=== PATIENT | female | born 1995 | race Caucasian/White ===

== ENCOUNTER 2016-09-19 14:12 | Emergency (ER) | payer SELFPAY ==
[~2016-09-19] VITALS: Ht 165.1 cm; Wt 50.0 kg
[~2016-09-19 14:12] MED LIST: MACR100C PO
[2016-09-19 14:14] VITALS: BP 115/68; PULSE 82; RESP 17; TEMP 98.6; O2SAT 98
[2016-09-19] MEDS ORDERED: PENI500T PO (15:19)
--- NOTE | 2016-09-19 15:20 | PD ---
HPI Chief Complaint: ENT Complaint Time Seen by Provider: 14:20 Travel History International Travel<30 days: No Contact w/Intl Traveler<30days: No Traveled to known affect area: No History of Present Illness HPI 21-year-old female presents emergency department for evaluation of sore throat times one day. Patient reports subjective fever and chills. Patient has history tripped pharyngitis. She reports the symptoms are similar. She denies cough, nasal congestion, chest pain, shortness, nausea or vomiting. PFSH Past Medical History ADD: Yes ADHD: Yes Autoimmune Disease: No Blood Disorders: No Bipolar Disorder: Yes Anxiety: Yes Depression: Yes Cancer: No Cardiovascular Problems: No Developmental Delay: No Diabetes: No Diminished Hearing: No Genitourinary: No Musculoskeletal: No Neurologic: No Psychiatric: Yes (PTSD) Respiratory: No Immunizations Current: Yes Migraines: No Seizures: No Sickle Cell Disease: No Thyroid Disease: No Ulcer: No ?: Not LMP: SEPTEMBER 2016 : 0 Past Surgical History Abdominal Surgery: Yes (INTESUSCEPTION AT 1YO) Appendectomy: No Cholecystectomy: No Other Surgery: Yes (INFANT ABD) Social History Alcohol Use: No Tobacco Use: No Substance Use: Yes (MARIJUANA USE) Allergies-Medications (Allergen,Severity, Reaction): Coded Allergies: Risperdal (Unverified Allergy, Unknown, 09/19/16) PT STATES IDIOSYNCRATIC RESPONSE TO MEDICATION. Seroquel (Unverified Allergy, Unknown, 09/19/16) PT DENIES. ALLERGY FOUND IN CHART ON A DOCUMENT. Reported Meds & Prescriptions Reported Meds & Active Scripts Active Penicillin V Potassium 500 Mg Tab 500 Mg PO Q12HR Review of Systems Except as stated in HPI: all other systems reviewed are Neg Physical Exam Narrative GENERAL: Well-nourished, well-developed patient. SKIN: Focused skin assessment warm/dry. HEAD: Normocephalic. EYES: No scleral icterus. No injection or drainage. THROAT: Tonsils mildly inflamed with exudate. Uvula midline. NECK: Supple, trachea midline. No JVD or lymphadenopathy. CARDIOVASCULAR: Regular rate and rhythm without murmurs, gallops, or rubs. RESPIRATORY: Breath sounds equal bilaterally. No accessory muscle use. GASTROINTESTINAL: Abdomen soft, non-tender, nondistended. MUSCULOSKELETAL: No cyanosis, or edema. BACK: Nontender without obvious deformity. No CVA tenderness. Data Data Last Documented VS Vital Signs Date Time Temp Pulse Resp B/P Pulse Ox O2 Delivery O2 Flow Rate FiO2 09/19/16 14:14 98.6 82 17 115/68 98 Room Air Orders Group A Rapid Strep Screen (09/19/16 14:28) MDM Medical Decision Making Medical Screen Exam Complete: Yes Emergency Medical Condition: Yes Differential Diagnosis Strep pharyngitis, viral pharyngitis, URI Narrative Course 21-year-old female with chief complaint of sore throat times one day. On exam patient has exudative tonsillitis. She reports symptoms are similar to strep throat infections in the past. Patient will be treated with penicillin. Injected follow up with her primary care doctor. She agrees to plan. Diagnosis Primary Impression: Tonsillitis Referrals: Primary Care Physician Additional Instructions: Take the antibiotics as prescribed. Take [id number] Motrin and/or Tylenol as needed for pain. Stay well hydrated by drinking plenty of fluids. Follow-up the primary care doctor. Scripts Penicillin V Potassium 500 Mg Qsh445 Mg PO Q12HR #20 TAB Prov:Helga Peng 09/19/16 Disposition: 01 DISCHARGE HOME Condition: Stable Helga Peng Sep 19, 2016 15:20
== END 2016-09-19 15:38 | disposition home or self-care (01) ==
LOC: NEPK 14:12
DX: J03.90 Acute tonsillitis, unspecified (principal); R50.9 Fever, unspecified; Z86.59 Personal history of other mental and behavioral disorders
CPT/HCPCS: 87880; 99283